=== PATIENT | male | born 1950 | race Caucasian/White ===

== ENCOUNTER 2016-08-07 05:26 | Inpatient (IN) | payer BC ==
[2016-07-25 10:57] LABS: BASOPHILS 0.3 %; BASOPHILS ABSOLUTE 0.02 10/3/uL (0.0-0.16); EOSINOPHILS 2.9 %; EOSINOPHILS ABSOLUTE 0.19 10/3/uL (0.0-0.53); HEMATOCRIT 39.8 % (40.0-51.0); HEMOGLOBIN 13.8 g/dL (13.6-17.8); IMMATURE GRANULOCYTES 0.3 %; IMMATURE GRANULOCYTES ABSOLUTE 0.02 10/3/uL (0.0-0.11); LYMPHOCYTES 29.5 %; LYMPHOCYTES ABSOLUTE 1.95 10/3/uL (0.67-4.30); MEAN CORPUS HGB CONC 34.7 g/dL (32.0-36.0); MEAN CORPUSCULAR HEMOGLOB 32.2 pg (26.0-34.0); MEAN PLATELET VOLUME 9.6 fL (9.2-13.0); MONOCYTES 8.5 %; MONOCYTES ABSOLUTE 0.56 10/3/uL (0.21-1.20); NEUTROPHILS 58.5 %; NEUTROPHILS ABSOLUTE 3.86 10/3/uL (2.02-8.40); PLATELET COUNT 370 10/3/uL (150-400); RBC DISTRIBUTION WIDTH 12.6 % (12.0-16.0); RED CELL COUNT 4.28 10/6/uL (4.7-6.1); WHITE BLOOD CELLS 6.6 10/3/uL (4.5-10.5)
[2016-07-25 10:58] LABS: MANUAL DIFF NO %
[2016-07-25 11:04] LABS: PARTIAL THROMBO TIME 25.7 SEC (22.5-37.2); PROTIME (NOT ORD) 13.3 SEC (12.0-14.5)
[2016-07-25 11:13] LABS: A/G RATIO 1.1 (0.7-1.9); ALBUMIN 4.1 G/DL (3.5-5.0); ALKALINE PHOSPHATASE 70 U/L (45-117); BUN (BLOOD UREA NITROGEN) 17 MG/DL (6-23); CALCIUM, SERUM 9.3 MG/DL (8.5-10.4); CHLORIDE, SERUM 103 MMOL/L (96-112); CO2 (CARBON DIOXIDE) 30 MMOL/L (24-34); CREATININE 0.96 MG/DL (0.70-1.30); GFR AFRICAN AMERICAN 96 ML/MIN (>=60); GFR NON AFRICAN AMERICAN 83 ML/MIN (>=60); GLOBULIN 3.6 G/DL (2.5-4.1); GLUCOSE, SERUM 102 MG/DL (60-99); POTASSIUM, SERUM 3.4 MMOL/L (3.5-5.3); SGOT(AST) 26 U/L (5-40); SGPT(ALT) 44 U/L (5-65); SODIUM, SERUM 142 MMOL/L (135-148); TOTAL BILIRUBIN 0.5 MG/DL (0-1.2); TOTAL PROTEIN 7.7 G/DL (6.0-8.5)
[2016-07-25 12:22] LABS: ASCORBIC ACID (UR NOT ORDER) NEG (NEG); BILIRUBIN, URINE NEGATIVE (NEG); KETONE, URINE NEGATIVE (NEG); LEUKOCYTE ESTERASE(NOT OR NEG (NEG); WBC (NOT ORDERED) (RFLEX) < 1 (0-5)
--- NOTE | ~2016-08-07 | OP ---
Record Of Operation [facility] [address] [place]. [address] NAME: KARYNA PALENCIA : 54 STATUS : DIS IN PAT#: [id number] AGE: 66 ADM/REG DATE : 08/07/16 MR#: [id number] REPORT SERV DATE: 08/07/16 DICTATED BY: CARLOS ALBARRAN DATE: 08/07/16 REPORT STATUS : Draft TRANSCRIBED BY: MODAnisa DATE: 08/07/16 DATE OF PROCEDURE: 08/07/2016 PREOPERATIVE DIAGNOSIS: Severe degenerative joint disease, left knee. POSTOPERATIVE DIAGNOSIS: Severe degenerative joint disease, left knee. PROCEDURE: Left total knee arthroplasty. IMPLANTS: [employer] BCS, size 6 left femur, size 5 left tibia, 10 mm poly spacer, and a 35 mm oval dome patella. COMPLICATIONS: None. SPECIMENS: None. COUNTS RECORDED CORRECT: Yes. CONDITION UPON LEAVING OR: Stable to recovery room with good distal pulses. ANESTHESIA: Spinal with adductor canal block. FINDINGS: Severe DJD. BLOOD LOSS: Less than 500 mL. TOURNIQUET TIME: Zero. PROCEDURE IN DETAIL: After the patient was identified in the perioperative holding area, correct side and site identified and marked by me, all questions answered, and having undergone an indwelling femoral nerve catheter, the patient was transferred to the operative suite and the patient placed under spinal anesthesia. The patient was prepped and draped in usual sterile fashion. Correct timeout and antibiotics administered. We began with a standard anterior midline incision and allowed for medial and lateral skin flaps. We then made a standard anterior medial arthrotomy. We everted the patella and patellar resection was made and sized. A metal patellar protector was placed within the lug holes, made a standard anterior medial peel and excision of the fat pad. A Z retractor was placed medially and a Dru laterally. We then placed the specific cutting jig on the femoral component, made our distal resection with that jig and then placement of the 5-in-1 cutting jig and made our femoral cuts. With that we turned our attention to the tibia where the patient's specific tibial jig was made for tibial resection. We then gap balanced in flexion and extension, noting good gap balancing. We then finished our tibia, placing the tray in appropriate degree of external rotation followed by the joe broach. We then placed our femoral component and prepared the box with the box reamer with implants. Trial implants in position, we noted full extension, but no hyperextension and flexion down to 130 degrees easily with good gap balancing and varus and valgus stress throughout the entire arc Record Of Operation [facility] [address] [place]. [address] NAME: KARYNA PALENCIA : 54 STATUS : DIS IN PAT#: [id number] AGE: 66 ADM/REG DATE : 08/07/16 MR#: [id number] REPORT SERV DATE: 08/07/16 DICTATED BY: CARLOS ALBARRAN DATE: 08/07/16 REPORT STATUS : Draft TRANSCRIBED BY: MODL DATE: 08/07/16 of motion. We also noted the patella tracked well throughout the entire arc of motion without lateral tilt. With that, we explanted our trial components, cleaned the bony ends with pulse lavage and implanted our final components; cemented on clean, dry bone ends, held in extension until the cement had hardened. The knee was evaluated for hemostasis. With the utilization of our topical tranexamic acid, we then ensured that all excess cement was appropriately debrided and removed, copiously irrigated and placed our final poly with final implants in position. The knee came to full extension, but no hyperextension, flexed down to 130 degrees easily with good gap balancing to varus and valgus stress throughout the entire arc of motion noting that the patella tracked well throughout the entire arc of motion. The patient was subsequently again copiously lavaged. The medial arthrotomy was closed with #2 quill in a running and oversewn fashion followed by 2-0 Vicryl in the skin followed by 3-0 Monocryl. The patient was dressed appropriately and transferred to the recovery room in stable condition having tolerated the procedure well. Pericapsular tissues were injected with local anesthetic between removal of trial components and placement of final components. TONY/VON Carlos Albarran M.D. / [id number] CC: Lisa Pickens, M.D.
[~2016-08-07 05:26] MED LIST: ADVIL PO; ANDROGEL5 TOP; ASA5GR PO; BENEMID500 PO; FISH OIL1200 MG PO; GLUCOSAMINEPO PO; HALF81 PO; HYZAAR 100/25 T1 TAB PO; LAM250 PO; LIPITOR40 PO; MULTIPLE VIT PO; NORV10 PO
[2017-01-21] MEDS ORDERED: NORV10 PO (13:39)
[2017-01-21] MEDS ORDERED: LIPITOR40 PO (13:39)
[2017-01-21] MEDS ORDERED: BENEMID500 PO (13:39)
[2017-01-21] MEDS ORDERED: HYZAAR 100/25 T1 TAB PO (13:41)
[2017-01-21] MEDS ORDERED: ASAB PO (13:43)
[2017-01-21] MEDS ORDERED: GAVISCO2 PO (13:43)
[2017-01-21] MEDS ORDERED: ADVIL PO (13:43)
[2017-01-21] MEDS ORDERED: MULTIVIT/MIN PO (13:44)
[2017-01-21] MEDS ORDERED: [UNRECOGNIZED DRUG - REMARK] TOP (13:52)
== END 2016-08-07 14:34 | disposition home or self-care (01) | DRG 470 ==
LOC: SDC/OF 05:26
PROVIDERS: Internal Medicine; Orthopaedic Surgery
PROC: 0SRD0J9 Replacement of Left Knee Joint with Synthetic Substitute, Cemented, Open Approach (ICD-10-PCS; principal; 2016-08-07 06:30)
DX: M17.12 Unilateral primary osteoarthritis, left knee (principal); I10 Essential (primary) hypertension; K21.9 Gastro-esophageal reflux disease without esophagitis; Z79.52 Long term (current) use of systemic steroids; Z88.8 Allergy status to other drugs, medicaments and biological substances; E78.00 Pure hypercholesterolemia, unspecified; Z96.651 Presence of right artificial knee joint
CPT/HCPCS: 36415; 71020; 80053; 81001; 83036; 85025; 85610; 85730; 86850; 86900; 86901; 87641; 88305; 88311; 93005; A9270-GY; C1776; J0690; J1885; J2250; J2274; J2405; J2795; J3010